=== PATIENT | male | born 1940 | race Caucasian/White ===

== ENCOUNTER 2017-08-27 11:51 | Day surgery (SDC) | payer MEDICARE, OTHER ==
[2017-08-25 11:07] LABS: BASOPHILS % (AUTO) 0.4 % (0-1); EOSINOPHILS # (AUTO) 0.1 X10'3 (0-0.9); HEMATOCRIT 41.8 % (42.0-52.0); HEMOGLOBIN 14.2 g/dl (14.0-17.9); LYMPHOCYTES # (AUTO) 1.8 X10'3 (1.1-4.8); LYMPHOCYTES % (AUTO) 21.1 % (21-51); MEAN CORPUSCULAR HEMOGLOBIN 32.5 PG (27.0-31.0); MEAN CORPUSCULAR VOLUME 95.6 FL (78-98); MEAN PLATELET VOLUME 8.1 FL (7.4-10.4); MONOCYTES # (AUTO) 0.6 X10'3 (0-0.9); MONOCYTES % (AUTO) 7.1 % (2-12); NEUTROPHILS % (AUTO) 70.4 % (42-75); PLATELET COUNT 228 X10'3 (140-440); RED BLOOD COUNT 4.37 X10'6 (4.70-6.10); RED CELL DISTRIBUTION WIDTH 14.6 % (11.5-14.5); WHITE BLOOD COUNT 8.6 X10'3 (4.5-11.0)
[2017-08-25 11:16] LABS: PARTIAL THROMBOPLASTIN TIME 31 SECONDS (22-32); PROTHROMBIN TIME 10.7 SECONDS (9.0-12.0)
[2017-08-25 11:18] LABS: ALBUMIN 3.5 G/DL (3.4-5.0); ANION GAP 7 (8-16); BLOOD UREA NITROGEN 29 MG/DL (7-18); BUN/CREATININE RATIO 18.1 (5.4-32.0); CALCIUM 9.5 MG/DL (8.5-10.1); CHLORIDE 104 MMOL/L (99-107); GLUCOSE 114 MG/DL (70-104); POTASSIUM 4.1 MMOL/L (3.5-5.1); SODIUM 140 MMOL/L (135-145); TOTAL CARBON DIOXIDE 28.7 MMOL/L (24-32); eGFR 42 ML/MIN
[2017-08-27] VITALS (7 sets, daily range): BP systolic 114–161; BP diastolic 57–82
[~2017-08-27] VITALS: Ht 172.7 cm; Wt 83.9 kg
[~2017-08-27 11:51] MED LIST: ALLO100T PO; ASPI-1071 PO; ATOR80TA PO; FERR325T32 PO; FLO0.4C PO; GABA-532 PO; GLIP5TAB13 PO; GUAI-178 PO; LOSA50TA3 PO; OMEP20TA5 PO; POTA10TA15 PO; TORS20TA3 PO; ZOLP12.52 PO
[2017-08-27] MEDS ORDERED: LORazepam 0.5 MG tablet PO ONE (12:25)
[2017-08-27] MEDS ORDERED: diphenhydrAMINE 25mg capsule PO ONE (12:25)
[2017-08-27] MEDS ORDERED: normal saline 1000ml 1,000 ML IV SCH (12:25)
[2017-08-27] MEDS ORDERED: PREG50CA PO (13:04)
[2017-08-27] MEDS ORDERED: ATOR80TA PO (13:05)
[2017-08-27] MEDS ORDERED: CLOP75TA35 PO (13:06)
[2017-08-27] MEDS ORDERED: POTA10TA15 PO (13:09)
[2017-08-27] MEDS ORDERED: LIDOcaine 1%/PF (10mg/ml) 5ml vial ONE ×2 (17:24)
[2017-08-27] MEDS ORDERED: iohexol 350MG/ML 100ml bottle IV ONE (17:24)
[2017-08-27] MEDS ORDERED: heparin 1,000 UNITS/NS 500ml 500 ML ONE ×2 (17:50)
[2017-08-27] MEDS ORDERED: fentaNYL/PF 50MCG/1 ML 2ML syringe ONE (17:51)
[2017-08-27] MEDS ORDERED: midazolam 2 mg/2 ml injection ONE ×2 (17:51→17:52)
== END 2017-08-27 20:35 | disposition home or self-care (01) ==
LOC: SSTAY O 11:51
PROVIDERS: ATTEND Internal Medicine Interventional Cardiology
DX: I25.10 Atherosclerotic heart disease of native coronary artery without angina pectoris (principal); E11.22 Type 2 diabetes mellitus with diabetic chronic kidney disease; I12.9 Hypertensive chronic kidney disease with stage 1 through stage 4 chronic kidney disease, or unspecified chronic kidney disease; N18.3 Chronic kidney disease, stage 3 (moderate); G47.33 Obstructive sleep apnea (adult) (pediatric); I65.29 Occlusion and stenosis of unspecified carotid artery; E78.5 Hyperlipidemia, unspecified; M19.90 Unspecified osteoarthritis, unspecified site; Z88.0 Allergy status to penicillin; Z88.6 Allergy status to analgesic agent; Z79.82 Long term (current) use of aspirin; Z90.89 Acquired absence of other organs; Z90.5 Acquired absence of kidney; Z95.1 Presence of aortocoronary bypass graft; Z86.79 Personal history of other diseases of the circulatory system
CPT/HCPCS: 36415; 80048; 82948; 85025; 85610; 85730; 93005; 93459; 99152; A6257; C1760; C1769; J1644; J2001; J2250; J3010; J7030; Q9967; 93458; 99153; A4620

== ENCOUNTER 2022-04-17 14:31 | Emergency (ER) | payer MEDICARE, OTHER ==
[~2022-04-17] VITALS: Ht 170.2 cm; Wt 90.7 kg
[~2022-04-17 14:31] MED LIST changes: +CLOP75TA34 PO; -GABA-532 PO; -GLIP5TAB13 PO; -GUAI-178 PO; +OMEP20TA43 PO; -OMEP20TA5 PO; +PREG50CA PO
[2022-04-17] MEDS ORDERED: HYDROcodone/acetaminophen 5mg/325mg tablet PO ONE (17:40)
[2022-04-17 18:29] VITALS: BP 172/79
[2022-04-17] MEDS ORDERED: bacitracin 15gm ointment TP ONE (18:45)
[2022-04-17] MEDS ORDERED: clindamycin 150mg capsule PO ONE (18:45)
[2022-04-17] MEDS ORDERED: CLIN150C2 PO (18:50)
[2022-04-17] MEDS ORDERED: clindamycin (18:50)
[2022-04-17] MEDS ORDERED: HYDR-3965 PO (18:50)
== END 2022-04-17 19:01 | disposition home or self-care (01) ==
LOC: ER 14:31
DX: L97.921 Non-pressure chronic ulcer of unspecified part of left lower leg limited to breakdown of skin (principal); G89.29 Other chronic pain; M79.605 Pain in left leg; Z88.5 Allergy status to narcotic agent; Z88.0 Allergy status to penicillin; Z79.899 Other long term (current) drug therapy
CPT/HCPCS: 99284; A6446

== ENCOUNTER 2024-01-27 11:26 | Outpatient (CLI) | payer MEDICARE, OTHER ==
[~2024-01-27 11:26] MED LIST changes: -ALLO100T PO; +ALLO100T25 PO; +APIX2.5T PO; -ASPI-1071 PO; -CLOP75TA34 PO; +FERR325T28 PO; -FERR325T32 PO; +FURO20TA4 PO; +ISOS60TA71 PO; -LOSA50TA3 PO; +METO25TA6 PO; +MIDO5TAB4 PO; -OMEP20TA43 PO; +PANT40TA54 PO; -POTA10TA15 PO; -TORS20TA3 PO; +TRAZ-251 PO; -ZOLP12.52 PO
[2024-01-27 12:18] LABS: BASOPHILS % (AUTO) 0.5 % (0-1); EOSINOPHILS % (AUTO) 0 % (0-6); HEMATOCRIT 28.2 % (42.0-52.0); HEMOGLOBIN 8.8 g/dl (14.0-17.9); LYMPHOCYTES # (AUTO) 0.7 X10'3 (1.1-4.8); LYMPHOCYTES % (AUTO) 13.9 % (21-51); MEAN CORPUSCULAR HGB CONC 31.4 g/dL (33.0-36.5); MEAN CORPUSCULAR VOLUME 92.3 FL (78-98); MEAN PLATELET VOLUME 9.4 FL (7.4-10.4); MONOCYTES # (AUTO) 0.4 X10'3 (0-0.9); MONOCYTES % (AUTO) 8.5 % (2-12); NEUTROPHILS # (AUTO) 3.8 X10'3 (1.8-7.7); NEUTROPHILS % (AUTO) 77.1 % (42-75); PLATELET COUNT 147 X10'3 (140-440); RED BLOOD COUNT 3.05 X10'6 (4.70-6.10); RED CELL DISTRIBUTION WIDTH 18.5 % (11.5-14.5); WHITE BLOOD COUNT 4.9 X10'3 (4.5-11.0)
[2024-01-27 12:34] LABS: ALANINE AMINOTRANSFERASE 21 U/L (12-78); ALBUMIN 2.6 G/DL (3.4-5.0); ALBUMIN/GLOBULIN RATIO 0.8 (1.1-1.5); ALKALINE PHOSPHATASE 109 IU/L (46-116); ANION GAP 7 (8-16); ASPARTATE AMINO TRANSFERASE 25 U/L (10-37); BILIRUBIN,TOTAL 1.1 MG/DL (0.1-1.0); BLOOD UREA NITROGEN 63 MG/DL (7-18); BUN/CREATININE RATIO 27.8 (10.0-20.0); CALCIUM 8.8 MG/DL (8.5-10.1); CHLORIDE 104 MMOL/L (99-107); CREATININE 2.27 MG/DL (0.60-1.10); GLUCOSE 97 MG/DL (70-104); POTASSIUM 3.6 MMOL/L (3.5-5.1); SODIUM 141 MMOL/L (135-145); TOTAL CARBON DIOXIDE 29.9 MMOL/L (24-32); TOTAL PROTEIN 5.9 G/DL (6.4-8.2); eGFR 28 ML/MIN
[2024-01-27 12:42] LABS: PRO BRAIN NATRIURETIC PEPTIDE 7027 PG/ML (0-450)
== END 2024-01-27 23:59 | disposition home or self-care (01) ==
LOC: LAB 11:26
PROVIDERS: ATTEND Internal Medicine Interventional Cardiology
DX: I50.9 Heart failure, unspecified (principal); I48.91 Unspecified atrial fibrillation; E78.5 Hyperlipidemia, unspecified
CPT/HCPCS: 36415; 80053; 83880; 85025

== ENCOUNTER 2025-05-23 10:33 | Outpatient (CLI) | payer MEDICARE, OTHER ==
[2025-05-19 11:38] LABS: CREATININE 2.09 MG/DL (0.60-1.10); TOTAL CARBON DIOXIDE 27.5 MMOL/L (24-32); eGFR 30 ML/MIN
[~2025-05-23 10:33] MED LIST changes: -ALLO100T25 PO; -FLO0.4C PO; +FURO-150 PO; -FURO20TA4 PO; -ISOS60TA71 PO; -MIDO5TAB4 PO; +PANT-47 PO; -PANT40TA54 PO; +TAMS-55 PO; -TRAZ-251 PO
[2025-05-23] MEDS ORDERED: iohexol 350 MG/ML 50ML vial IV ONE (10:59)
== END 2025-05-23 23:59 | disposition home or self-care (01) ==
LOC: RAD 10:33
PROVIDERS: ATTEND Internal Medicine Interventional Cardiology
DX: I70.213 Atherosclerosis of native arteries of extremities with intermittent claudication, bilateral legs (principal); I11.0 Hypertensive heart disease with heart failure; I50.22 Chronic systolic (congestive) heart failure; I70.8 Atherosclerosis of other arteries
CPT/HCPCS: 36415; 80048; Q9967